=== PATIENT | female | born 1945 | race Caucasian/White ===

== ENCOUNTER 2019-04-02 12:42 | Inpatient (IN) ==
[2019-04-02] MEDS: *HR* OxyCODONE Immed Rel 5 MG TABLET PO PRN ×2 (15:53→22:06)
[2019-04-02] MEDS: Sulfamethoxazole/Trimeth DS 1 EACH TABLET PO SCH (20:57)
[2019-04-03] MEDS: *HR* Enoxaparin 40 MG/0.4 ML SYRINGE SQ SCH (05:20)
[2019-04-03] MEDS: *HR* OxyCODONE Immed Rel 5 MG TABLET PO PRN ×3 (05:20→21:06)
[2019-04-03 05:44] LABS: Basophils % 0.4 %; Eosinophils # 0.2 K/mcL (0.0-0.6); Hemoglobin 10.9 g/dL (11.5-15.4); Immature Granulocytes % 0.1 % (0-4); Lymphocytes # 2.7 K/mcL (0.6-4.6); Lymphocytes % 35.1 %; Mean Corpuscular Hemoglobin 28.8 pg (28.0-33.3); Mean Corpuscular Volume 87.1 fL (83.0-100.0); Mean Platelet Volume 10.7 fL (9.4-12.4); Monocytes # 0.7 K/mcL (0.0-1.3); Monocytes % 8.5 %; Neutrophils # 4.1 K/mcL (1.6-8.9); Platelet Count 156 K/mcL (140-400); Red Blood Count 3.79 M/mcL (3.82-4.97); Red Cell Distribution Width 16.6 % (11.5-14.5); Segmented Neutrophils % 52.9 %; White Blood Count 7.7 K/mcL (4.3-11.1)
[2019-04-03 05:59] LABS: BUN/Creatinine Ratio 29 (6-26); Blood Urea Nitrogen 19 mg/dL (8-23); Calcium 8.6 mg/dL (8.6-10.3); Carbon Dioxide 22 mEq/L (23-29); Chloride 103 mEq/L (98-107); Glucose 256 mg/dL (70-105); Osmolality,Calculated 285 (280-300); Potassium 4.4 mEq/L (3.5-5.1); Sodium 132 mEq/L (136-145); eGFR For African Americans > 60 (> 60); eGFR For Non-African Americans > 60 (> 60)
[2019-04-03] MEDS: Sulfamethoxazole/Trimeth DS 1 EACH TABLET PO SCH ×2 (08:39→21:05)
[2019-04-03] MEDS ORDERED: *HR* GlyBURIDE 5 MG TABLET PO SCH (09:00)
[2019-04-03] MEDS ORDERED: Dextrose Gel 15 GM/37.5 ML TUBE PO PRN ×2 (13:47)
[2019-04-03] MEDS ORDERED: *HR* Dextrose 50 % in Water (Vial) 50 ML VIAL IVP PRN (13:47)
[2019-04-03] MEDS ORDERED: D5% in Water 1,000 ML IVC PRN (13:47)
[2019-04-03] MEDS: Acetaminophen 325 MG TABLET PO PRN (17:15)
[2019-04-03] MEDS: Insulin LISPRO 300 UNITS/3 ML VIAL SQ SCH ×2 (17:19→21:02)
[2019-04-04] MEDS: *HR* Enoxaparin 40 MG/0.4 ML SYRINGE SQ SCH (05:36)
[2019-04-04] MEDS: *HR* OxyCODONE Immed Rel 5 MG TABLET PO PRN ×2 (05:39→20:20)
[2019-04-04] MEDS: Sulfamethoxazole/Trimeth DS 1 EACH TABLET PO SCH (08:56)
[2019-04-04] MEDS: *HR* GlyBURIDE 5 MG TABLET PO SCH (08:58)
[2019-04-04] MEDS: Insulin LISPRO 300 UNITS/3 ML VIAL SQ SCH ×4 (09:00→20:35)
[2019-04-04] MEDS ORDERED: Insulin DETEMIR 100 UNIT/ML per UNIT SQ ONE ×2 (21:00)
[2019-04-05] MEDS: *HR* OxyCODONE Immed Rel 5 MG TABLET PO PRN ×4 (04:40→22:12)
[2019-04-05] MEDS: *HR* Enoxaparin 40 MG/0.4 ML SYRINGE SQ SCH (04:40)
[2019-04-05] MEDS: Insulin LISPRO 300 UNITS/3 ML VIAL SQ SCH ×4 (07:30→20:43)
[2019-04-05] MEDS: *HR* GlyBURIDE 5 MG TABLET PO SCH (07:44)
[2019-04-05] MEDS: Acetaminophen 325 MG TABLET PO PRN (07:45)
[2019-04-05] MEDS: Insulin DETEMIR 100 UNIT/ML X5UNITS SQ SCH (20:43)
[2019-04-06] MEDS: *HR* Enoxaparin 40 MG/0.4 ML SYRINGE SQ SCH (05:23)
[2019-04-06] MEDS: *HR* GlyBURIDE 5 MG TABLET PO SCH (08:13)
[2019-04-06] MEDS: Insulin LISPRO 300 UNITS/3 ML VIAL SQ SCH ×4 (08:17→23:22)
[2019-04-06] MEDS: *HR* OxyCODONE Immed Rel 5 MG TABLET PO PRN ×3 (08:17→23:18)
[2019-04-06] MEDS: Acetaminophen 325 MG TABLET PO PRN (10:48)
[2019-04-06] MEDS: Insulin DETEMIR 100 UNIT/ML X5UNITS SQ SCH (23:22)
[2019-04-07] MEDS: *HR* Enoxaparin 40 MG/0.4 ML SYRINGE SQ SCH (07:12)
[2019-04-07] MEDS: *HR* OxyCODONE Immed Rel 5 MG TABLET PO PRN ×2 (08:22→17:10)
[2019-04-07] MEDS: *HR* GlyBURIDE 5 MG TABLET PO SCH (08:23)
[2019-04-07] MEDS: Insulin LISPRO 300 UNITS/3 ML VIAL SQ SCH ×4 (08:23→21:54)
[2019-04-07] MEDS: Acetaminophen 325 MG TABLET PO PRN (21:51)
[2019-04-07] MEDS: Insulin DETEMIR 100 UNIT/ML X5UNITS SQ SCH (21:54)
[2019-04-08] MEDS: *HR* OxyCODONE Immed Rel 5 MG TABLET PO PRN ×2 (07:06→21:32)
[2019-04-08] MEDS: *HR* Enoxaparin 40 MG/0.4 ML SYRINGE SQ SCH (07:08)
[2019-04-08] MEDS: *HR* GlyBURIDE 5 MG TABLET PO SCH (07:46)
[2019-04-08] MEDS: Insulin LISPRO 300 UNITS/3 ML VIAL SQ SCH ×4 (07:48→21:45)
[2019-04-08] MEDS: Acetaminophen 325 MG TABLET PO PRN (11:11)
[2019-04-08] MEDS: Insulin DETEMIR 100 UNIT/ML X5UNITS SQ SCH (21:32)
[2019-04-09] MEDS: *HR* Enoxaparin 40 MG/0.4 ML SYRINGE SQ SCH ×2 (05:31→20:29)
[2019-04-09] MEDS: Insulin LISPRO 300 UNITS/3 ML VIAL SQ SCH ×4 (09:08→20:23)
[2019-04-09] MEDS: *HR* OxyCODONE Immed Rel 5 MG TABLET PO PRN ×2 (10:42→20:26)
[2019-04-09] MEDS: *HR* GlyBURIDE 5 MG TABLET PO SCH (10:42)
[2019-04-09] MEDS: Insulin DETEMIR 100 UNIT/ML X5UNITS SQ SCH (20:24)
[2019-04-10] MEDS: Insulin LISPRO 300 UNITS/3 ML VIAL SQ SCH ×4 (08:12→20:11)
[2019-04-10] MEDS: *HR* GlyBURIDE 5 MG TABLET PO SCH ×2 (08:18→17:14)
[2019-04-10] MEDS: *HR* OxyCODONE Immed Rel 5 MG TABLET PO PRN ×2 (08:18→14:37)
[2019-04-10] MEDS: *HR* Metformin 500 MG TABLET PO SCH (17:37)
[2019-04-10] MEDS: Acetaminophen 325 MG TABLET PO PRN (20:12)
[2019-04-10] MEDS: *HR* Enoxaparin 40 MG/0.4 ML SYRINGE SQ SCH (20:15)
[2019-04-11] MEDS: *HR* OxyCODONE Immed Rel 5 MG TABLET PO PRN ×2 (03:00→15:08)
[2019-04-11 07:19] VITALS: BP 112/72
[2019-04-11] MEDS: Insulin LISPRO 300 UNITS/3 ML VIAL SQ SCH ×2 (07:23→12:05)
[2019-04-11] MEDS: *HR* Metformin 500 MG TABLET PO SCH (07:53)
[2019-04-11] MEDS: *HR* GlyBURIDE 5 MG TABLET PO SCH (07:53)
[2019-04-11] MEDS: Acetaminophen 325 MG TABLET PO PRN (07:54)
[2019-04-11] MEDS ORDERED: Aspirin 81 MG TAB.CHEW PO SCH (21:00)
== END 2019-04-11 15:42 | disposition home or self-care (01) | DRG 560 ==
LOC: INPGRE 12:42
PROVIDERS: ADMIT Family Medicine; ATTEND Family Medicine